=== PATIENT | female | born 1995 | race African-American/Black ===

== ENCOUNTER 2021-01-20 14:38 | Emergency (ER) | payer SELFPAY ==
[~2021-01-20] VITALS: Ht 162.6 cm; Wt 81.2 kg
[2021-01-20 14:40] VITALS: BP 140/82
--- NOTE | 2021-01-20 15:03 | NUR ---
URINE SPECIMEN COLLECTED AND SENT TO LAB.
--- NOTE | 2021-01-20 15:15 | NUR ---
SEEN AND EXAMINED BY .
[2021-01-20] MEDS ORDERED: VALA500T40 PO (15:19)
[2021-01-20] MEDS ORDERED: GENTAMICIN 80 MG/2 ML VIAL IM ONE (15:30)
[2021-01-20] MEDS ORDERED: AZITHROMYCIN 250 MG TABLET PO ONE (15:30)
[2021-01-20] MEDS ORDERED: AZITHROMYCIN 250 MG TABLET ONE (15:35)
[2021-01-20] MEDS ORDERED: GENTAMICIN 80 MG/2 ML VIAL ONE (15:35)
--- NOTE | 2021-01-20 16:27 | NUR ---
Patient discharged to home in stable condition. Written and verbal after care instructions given. Patient verbalizes understanding of instruction.
== END 2021-01-20 16:29 | disposition home or self-care (01) ==
LOC: ER 15:06
DX: A64 Unspecified sexually transmitted disease (principal); B00.9 Herpesviral infection, unspecified
CPT/HCPCS: 84703-TC; 87491; 87591; J1580

== ENCOUNTER 2022-06-12 09:10 | Emergency (ER) | payer OTHER ==
[~2022-06-12] VITALS: Ht 165.1 cm; Wt 77.1 kg
[~2022-06-12 09:10] MED LIST: VALA500T40 PO
[2022-06-12 09:40] VITALS: BP 133/76
[2022-06-12] MEDS ORDERED: FAMO-131 PO (09:49)
[2022-06-12] MEDS ORDERED: DIPH25CA83 PO (09:49)
[2022-06-12] MEDS ORDERED: PRED50TA PO (09:49)
--- NOTE | 2022-06-12 10:17 | NUR ---
Patient discharged to home in stable condition. Written and verbal after care instructions given. Patient verbalizes understanding of instruction. Written prescription obtained from md and given to pt.
== END 2022-06-12 10:19 | disposition home or self-care (01) ==
LOC: ER 09:35
DX: R22.0 Localized swelling, mass and lump, head (principal); T50.Z95A Adverse effect of other vaccines and biological substances, initial encounter; Z79.899 Other long term (current) drug therapy; Y92.89 Other specified places as the place of occurrence of the external cause

== ENCOUNTER 2024-04-20 13:58 | Emergency (ER) | payer MEDICAID, OTHER ==
[~2024-04-20] VITALS: Ht 165.1 cm; Wt 74.8 kg
[~2024-04-20 13:58] MED LIST changes: +DIPH25CA83 PO; +FAMO-131 PO; +PRED50TA PO
[2024-04-20 15:10] VITALS: BP 126/72; TEMP 98.4; O2SAT 98
[2024-04-20] MEDS ORDERED: DIPH25CA83 PO (15:51)
[2024-04-20] MEDS ORDERED: FAMO20TA8 PO (15:51)
[2024-04-20] MEDS ORDERED: PRED20TA PO (15:51)
[2024-04-20] MEDS: predniSONE 10 MG TABLET PO ONE (16:23)
[2024-04-20] MEDS: diphenhydrAMINE HCL 50 MG CAPSULE PO ONE (16:23)
[2024-04-20] MEDS: FAMOTIDINE (20 MG) 20 MG TABLET PO ONE (16:23)
== END 2024-04-20 16:57 | disposition home or self-care (01) ==
LOC: ER 14:03
DX: T78.49XA Other allergy, initial encounter (principal); H57.89 Other specified disorders of eye and adnexa; X58.XXXA Exposure to other specified factors, initial encounter